=== PATIENT | male | born 1955 | race Caucasian/White ===

== ENCOUNTER → 2017-01-05 | Outpatient (CLI) | payer OTHER ==
[~2017-01-05] MED LIST: REGADENOSON 0.4 MG/5 ML SYRINGE ONE
== END | disposition home or self-care (01) ==
LOC: CFH 07:18
PROVIDERS: ATTEND Internal Medicine Cardiovascular Disease
DX: I35.8 Other nonrheumatic aortic valve disorders (principal); I45.4 Nonspecific intraventricular block; I10 Essential (primary) hypertension; E11.9 Type 2 diabetes mellitus without complications; Z87.891 Personal history of nicotine dependence
CPT/HCPCS: 78452; 93017; 93306; A9502; J2785

== ENCOUNTER 2017-02-14 00:29 | Emergency (ER) | payer OTHER ==
[~2017-02-14] VITALS: Ht 172.7 cm; Wt 208.0 kg
[2017-02-14 00:59] LABS: PH, VENOUS 7.324 pH (7.320-7.420)
[2017-02-14 01:00] LABS: HEMATOCRIT 41.7 % (39.2-51.8); HEMOGLOBIN 14.1 g/dL (13.7-18.0)
[2017-02-14] MEDS ORDERED: ONDANSETRON 2MG/ML, 2ML IVPush ONE (01:00)
[2017-02-14] MEDS ORDERED: SODIUM CHLORIDE 0.9% 1,000ML IVBOLUS ONE (01:00)
[2017-02-14] MEDS ORDERED: ONDANSETRON 2MG/ML, 2ML ONE (01:00)
[2017-02-14] MEDS ORDERED: INSU100C SQ-INSULIN (01:08)
[2017-02-14] MEDS ORDERED: METF500T4 PO (01:08)
[2017-02-14 01:12] LABS: BLOOD UREA NITROGEN 14 mg/dL (7-18)
[2017-02-14] MEDS ORDERED: INSULIN REGULAR 100 UNITS/ML, 3ML VIAL SQ-INSULIN ONE (01:30)
[2017-02-14] MEDS ORDERED: INSULIN REGULAR 100 UNITS/ML, 3ML VIAL ONE (01:39)
[2017-02-14 02:45] VITALS: BP 112/69
== END 2017-02-14 03:30 | disposition home or self-care (01) ==
LOC: ED 02:35
DX: F10.129 Alcohol abuse with intoxication, unspecified (principal); E11.65 Type 2 diabetes mellitus with hyperglycemia
CPT/HCPCS: 36415; 80048; 80307; 82010; 82040; 82803; 82962; 85025; 96372; 96374; 99284; J2405; J7030; G0479